=== PATIENT | female | born 1955 | race Caucasian/White ===

== ENCOUNTER → 2016-10-08 | Outpatient (CLI) | payer OTHER ==
[~2016-10-08] MED LIST: ASPIR 8181 MG PO; COLACE 100MG C100 MG PO; ELIQUIS2.5 MG PO; LEVOTHYROXINE25 MCG PO; LEXAPRO10 MG PO; LISINOPRIL-HCT1 EAC1 PO; LOPRESSOR 25 MG25 MG PO; PERCOCET 10-321 EACH PO; TYLENOL 325MG325 MG PO; VITAMIN B-1000 MCG/M IM; VITAMIN D250000 UNIT PO
== END ==
LOC: KOH-I 13:40
DX: M25.561 Pain in right knee (principal); M17.11 Unilateral primary osteoarthritis, right knee
CPT/HCPCS: 73564

== ENCOUNTER → 2016-12-02 | Outpatient (CLI) | payer OTHER | LOC: NM 14:20 | DX: R94.31 Abnormal electrocardiogram [ECG] [EKG] (principal); R94.39 Abnormal result of other cardiovascular function study | CPT/HCPCS: 78452; 93017; A9502; J2785 ==

== ENCOUNTER → 2016-12-07 | Outpatient (CLI) | payer OTHER ==
[2016-12-07 14:02] LABS: HEMOGLOBIN 12.1 gm/dl (12.3-15.3); RED BLOOD COUNT 4.59 M/UL (4.00-5.10); WHITE BLOOD COUNT 11.5 K/UL (4.5-11.0)
[2016-12-07 14:22] LABS: BUN/CREATININE RATIO 22 (0-10)
== END ==
LOC: OPSV2 12:22 → EDSTATUS 12:30
PROVIDERS: Orthopaedic Surgery
DX: Z01.810 Encounter for preprocedural cardiovascular examination (principal); Z01.812 Encounter for preprocedural laboratory examination; M17.11 Unilateral primary osteoarthritis, right knee
CPT/HCPCS: 36415; 80048; 81001; 85025; 87077; 87081; 87086; 87186

== ENCOUNTER → 2016-12-14 | Outpatient (CLI) | payer OTHER ==
[2016-12-14 13:37] LABS: BUN/CREATININE RATIO 21 (0-10)
== END ==
LOC: LAB 12:45
PROVIDERS: Orthopaedic Surgery
DX: Z01.812 Encounter for preprocedural laboratory examination (principal)
CPT/HCPCS: 36415; 80048; 86850; 86900; 86901

== ENCOUNTER 2016-12-15 07:57 | Inpatient (IN) | payer OTHER ==
[~2016-12-15] VITALS: Ht 170.2 cm; Wt 128.8 kg
[2016-12-15] MEDS ORDERED: LEXAPRO10 MG PO (08:48)
[2016-12-15] MEDS ORDERED: ASPIR 8181 MG PO (08:49)
[2016-12-15] MEDS ORDERED: VITAMIN D250000 UNIT PO (08:49)
[2016-12-15] MEDS ORDERED: LEVOTHYROXINE25 MCG PO (08:49)
[2016-12-15] MEDS ORDERED: LISINOPRIL-HCT1 EAC1 PO (08:50)
[2016-12-15] MEDS ORDERED: VITAMIN B-1000 MCG/M IM (08:51)
[2016-12-15] MEDS ORDERED: LOPRESSOR 25 MG25 MG PO (08:52)
[2016-12-16 06:38] LABS: HEMOGLOBIN 9.9 gm/dl (12.3-15.3); RED BLOOD COUNT 3.86 M/UL (4.00-5.10)
[2016-12-16 06:49] LABS: BUN/CREATININE RATIO 30 (0-10)
[2016-12-17 06:08] LABS: WHITE BLOOD COUNT 12.1 K/UL (4.5-11.0)
[2016-12-17 06:09] LABS: RED BLOOD COUNT 3.46 M/UL (4.00-5.10)
[2016-12-17 06:27] LABS: BUN/CREATININE RATIO 20 (0-10)
[2016-12-17] MEDS ORDERED: COLACE 100MG C100 MG PO (12:35)
[2016-12-17] MEDS ORDERED: TYLENOL 325MG325 MG PO (12:37)
[2016-12-17] MEDS ORDERED: PERCOCET 10-321 EACH PO (12:38)
[2016-12-17] MEDS ORDERED: ELIQUIS2.5 MG PO (12:42)
== END 2016-12-17 16:46 | disposition home or self-care (01) | DRG 470 ==
LOC: ZOBSOF 07:57 → M/S 16:51
PROVIDERS: ADMIT Orthopaedic Surgery
PROC: 0SRC0J9 Replacement of Right Knee Joint with Synthetic Substitute, Cemented, Open Approach (ICD-10-PCS; principal; 2016-12-15 11:30)
DX: M17.11 Unilateral primary osteoarthritis, right knee (principal); Z68.43 Body mass index [BMI] 50.0-59.9, adult; D62 Acute posthemorrhagic anemia; E66.01 Morbid (severe) obesity due to excess calories; M21.161 Varus deformity, not elsewhere classified, right knee; M25.761 Osteophyte, right knee; I10 Essential (primary) hypertension; E03.9 Hypothyroidism, unspecified; E53.8 Deficiency of other specified B group vitamins; E55.9 Vitamin D deficiency, unspecified; J30.9 Allergic rhinitis, unspecified; F32.9 Major depressive disorder, single episode, unspecified; Z98.84 Bariatric surgery status; Z96.652 Presence of left artificial knee joint; Z79.02 Long term (current) use of antithrombotics/antiplatelets; Z79.1 Long term (current) use of non-steroidal anti-inflammatories (NSAID); Z79.899 Other long term (current) drug therapy; Z88.5 Allergy status to narcotic agent; Z88.0 Allergy status to penicillin; Z98.890 Other specified postprocedural states; Z83.3 Family history of diabetes mellitus; Z82.49 Family history of ischemic heart disease and other diseases of the circulatory system; Z82.5 Family history of asthma and other chronic lower respiratory diseases; Z84.1 Family history of disorders of kidney and ureter; Z80.8 Family history of malignant neoplasm of other organs or systems; Z82.61 Family history of arthritis
CPT/HCPCS: 36415; 73560; 80048; 84484; 85025; 97110; 97116; 97530; 97535; C1776; J0690; J0780; J1885; J2250; J2270; J3370; J7030; J7050; J7120